=== PATIENT | male | born 1935 | race Caucasian/White ===

== ENCOUNTER 2016-06-30 01:07 | Day surgery (SDC) | payer MEDICARE, BC ==
[~2016-06-30] VITALS: Ht 170.2 cm; Wt 90.7 kg
[2016-06-30] VITALS (12 sets, daily range): BP systolic 85–159; BP diastolic 43–93
[~2016-06-30 01:07] MED LIST: AMLO5TAB4 PO; ASPI-484 PO; ASPI325T4 PO; ATEN-94 PO; CYCL5TAB PO; HYDR-922 PO; LINA5TAB PO; LOVA20TA2 PO; MORP15TA PO; POT25TAB PO
[2016-06-30] MEDS ORDERED: NS 1000ML 1,000 ML ONE ×2 (05:34→13:40)
[2016-06-30] MEDS ORDERED: ZOFRAN ONE (07:33)
[2016-06-30] MEDS ORDERED: VERSED ONE (07:33)
[2016-06-30] MEDS ORDERED: DIPRIVAN IV ONE (07:34)
[2016-06-30] MEDS ORDERED: SUBLIMAZE ONE (07:34)
[2016-06-30] MEDS: NS 1000ML 1,000 ML IV SCH ×2 (10:12→13:51)
[2016-06-30] MEDS ORDERED: DECADRON ONE ×2 (12:04→12:30)
[2016-06-30] MEDS ORDERED: LIDOCAINE 1% VIAL ONE (12:05)
--- NOTE | 2016-06-30 13:32 | OPH ---
DATE OF SURGERY: 06/30/2016 PROCEDURES: 1. Lumbar L4-L5 interlaminar epidural steroid injection. 2. Right sacroiliac joint steroid injection. 3. Needle fluoroscopic guidance. 4. Intraoperative lumbar epidurogram. REASON FOR PROCEDURE: 1. Lumbar degenerative disc disease with radiculopathy. 2. Sacroiliac pain/sacroiliitis. PHYSICIAN: Andreina Hooper MD MEDICATIONS INJECTED: 9 mL of Decadron 36 mg and 4 mL sterile preservative-free 1% lidocaine. LOCAL ANESTHETIC INJECTED: 5 mL of 1% lidocaine. ANESTHESIA: MAC. ESTIMATED BLOOD LOSS: None. COMPLICATIONS: None. TECHNIQUE: Time-out was taken to identify the correct patient, procedure and site prior to starting the procedure. With the patient lying in prone position, the area was prepped and draped in usual sterile fashion using DuraPrep and a fenestrated drape. The level above was determined using fluoroscopy. Local anesthetic was given using a 27-gauge 1.25 inch needle by raising skin wheal and going down to the hub. A 3.5-inch 18-gauge Touhy needle was introduced under intermittent fluoroscopic guidance. The needle was advanced to the ligamentum flavum using loss of resistance technique. Once the tip of the needle was thought to be in a desired position, Omnipaque 180 was injected to confirm only epidural spread, no vascular runoff. The injectable was then injected slowly. The sacroiliac joint was determined under fluoroscopy. Local anesthetic was given by raising skin wheal and going down to the hub with 27-gauge 1.25-inch needle. The 3.5 inch 22-gauge Lester needle was advanced to above sacroiliac joint. After a negative aspirate to make sure there was no intravascular placement, Omnipaque 180 was injected to confirm intraarticular spread and confirm no vascular run-off. Medication was then injected slowly. The procedure was completed without complication and tolerated well. The patient was monitored throughout the procedure. The patient was given postprocedure and discharge instructions to follow at home. The patient was discharged in stable condition. A followup appointment was made. PREPROCEDURE PAIN SCORE: 8/10. POSTPROCEDURE PAIN SCORE: 0/10. EPIDUROGRAM DIAGNOSTIC STUDY: DESCRIPTION OF PROCEDURE: The patient underwent a lumbar epidural steroid injection and sacroiliac joint steroid injection today. The epidural was observed at the level L4-L5 under AP and lateral fluoroscopic guidance. 2 mL of Omnipaque 180 contrast was injected that evenly spread from level L3-S1 level with posterior anterior dye spread bilaterally at L4-L5 and L5-S1. There appeared to be [id number] spondylosis noted at both levels, with evidence of compression fractures. The intervertebral disc height at L4-L5 was approximately 25% less than normal as well as the intervertebral disc height at L5-S1. The neural foramen appeared to be patent. Hard copies of the images are on file. Andreina Hooper MD DR: [email or web address] JOB# [id number]
== END 2016-06-30 14:49 | disposition home or self-care (01) ==
LOC: SURG 01:07
PROVIDERS: ATTEND Anesthesiology
DX: M51.16 Intervertebral disc disorders with radiculopathy, lumbar region (principal); M46.1 Sacroiliitis, not elsewhere classified; M47.27 Other spondylosis with radiculopathy, lumbosacral region; E66.9 Obesity, unspecified; Z68.31 Body mass index [BMI] 31.0-31.9, adult; I25.10 Atherosclerotic heart disease of native coronary artery without angina pectoris; I10 Essential (primary) hypertension; E11.9 Type 2 diabetes mellitus without complications; M19.90 Unspecified osteoarthritis, unspecified site; Z96.653 Presence of artificial knee joint, bilateral; Z90.49 Acquired absence of other specified parts of digestive tract
CPT/HCPCS: 62323; G0260; 27096; 77003; 82948; J1100; J2001; J2250; J2405; J3010; J3490; J7030; Q9965